=== PATIENT | male | born 1975 | race African-American/Black ===

== ENCOUNTER 2018-05-24 10:39 | Emergency (ER) | payer BC | END 2018-05-24 11:54 | disposition home or self-care (01) | LOC: ERS 10:39 | DX: H10.13 Acute atopic conjunctivitis, bilateral (principal); F17.210 Nicotine dependence, cigarettes, uncomplicated | CPT/HCPCS: 99282 ==

== ENCOUNTER 2024-02-18 16:33 | Outpatient (CLI) | payer BC ==
[2024-02-18 17:02] LABS: #Basophils 0.08 10x3/uL (0.0-0.2); %Basophils 0.7 % (0.0-1.0); %Eosinophils 2.8 % (0.0-10.0); %Lymphocytes 23.4 % (21.0-51.0); %Neutrophils 66.6 % (42.0-75.0); Hematocrit 28.8 % (42.0-52.0); Hemoglobin 8.9 g/dL (14.0-18.0); Mean Corpuscular HGB CONC 30.9 g/dL (32.0-36.0); Mean Corpuscular Hemoglobin 28.8 pg (27.0-31.0); Mean Corpuscular Volume 93.2 fL (78.0-98.0); Mean Platelet Volume 9.9 fL (7.4-10.4); Platelet Count 428 10x3/uL (130-400); RBC Distribution Width 14.9 % (11.5-14.5); Red Blood Cell (RBC) Count 3.09 mill/uL (4.70-6.10)
[2024-02-18 17:23] LABS: Anion Gap 12 mmol/L (10-20); BUN (Urea Nitrogen) 17 mg/dL (8.9-20.6); CRP,High Sensitivity (Inhouse) 3.25 mg/dL (< or = 0.5); Calc. Creatinine Clearance 0 mL/min (70-130); Calcium 9.2 mg/dL (7.8-10.44); Carbon Dioxide 23 mmol/L (22-29); Chloride 105 mmol/L (98-107); Estimated GFR 51; Glucose 81 mg/dL (70-105); Potassium 3.9 mmol/L (3.5-5.1); Sodium 136 mmol/L (136-145)
== END 2024-02-18 16:34 | disposition home or self-care (01) ==
LOC: LABBT 16:33
PROVIDERS: ATTEND Orthopaedic Surgery Hand Surgery
DX: Z01.818 Encounter for other preprocedural examination (principal); L03.011 Cellulitis of right finger; L02.511 Cutaneous abscess of right hand
CPT/HCPCS: 80048; 85025; 86141; 93005; 93010

== ENCOUNTER 2024-02-22 07:09 | Day surgery (SDC) | payer BC ==
[2024-02-18 16:47] VITALS: BMI 36.0
[2024-02-22] MEDS ORDERED: Lidocaine 1% PF 5 ML VIAL ONE (07:26)
[2024-02-22] MEDS ORDERED: Dexamethasone 4 mg/ml Vial ONE (07:26)
[2024-02-22] MEDS ORDERED: Ondansetron PF 4 MG/2 ML Vial ONE (07:26)
[2024-02-22] MEDS ORDERED: fentaNYL PF 100 MCG/2 ML SYRINGE ONE (07:27)
[2024-02-22] MEDS ORDERED: PROPOFOL 20 ML ONE (07:27)
[2024-02-22] MEDS ORDERED: Midazolam HCl 2 mg/2 ml Vial ONE (07:27)
[2024-02-22] MEDS ORDERED: Bupivacaine PF 0.5% 30 ML VIAL ONE (08:04)
[2024-02-22] MEDS ORDERED: Mineral Oil Sterile 10 ML VIAL ONE (08:04)
[2024-02-22] MEDS ORDERED: Bacitracin Zinc Ointment 30 gm TUBE ONE (08:04)
[2024-02-22] MEDS ORDERED: CEFAZOLIN 2 GM VIAL ONE (08:23)
[2024-02-22] MEDS ORDERED: Sodium Chloride 0.9% 100 ML ONE (08:24)
[2024-02-22] MEDS ORDERED: PHENYLEPHRINE-NS 100 MCG/ML 10 ML SYRINGE ONE (09:06)
[2024-02-22] MEDS ORDERED: fentaNYL 50 mcg/mL 1 mL Vial ONE ×2 (09:54→11:39)
[2024-02-22] MEDS ORDERED: Ketorolac Tromethamine 30 MG (1 mL) VIAL ONE (10:13)
== END 2024-02-22 12:53 | disposition home or self-care (01) ==
LOC: SDC 07:09
PROVIDERS: ATTEND Orthopaedic Surgery Hand Surgery
PROC: 0HBFXZZ Excision of Right Hand Skin, External Approach (ICD-10-PCS; principal; 2024-02-22)
DX: L02.511 Cutaneous abscess of right hand (principal); L03.011 Cellulitis of right finger; I10 Essential (primary) hypertension; E11.9 Type 2 diabetes mellitus without complications; F17.200 Nicotine dependence, unspecified, uncomplicated; Z79.899 Other long term (current) drug therapy; Z88.6 Allergy status to analgesic agent
CPT/HCPCS: 36416; J0665; J1100; J1885; J2250; J2405; J2704; J3010